=== PATIENT | male | born 1985 | race Caucasian/White ===

== ENCOUNTER → 2018-02-19 | Outpatient (CLI) | payer OTHER ==
[~2018-02-19] MED LIST: GASTROGRAFIN SOLUTION 30ML (Q9963) As Ordered; ISOVUE-370 76% 100ML VIAL (Q9967) As Ordered
[2018-02-19 10:31] LABS: BASO % 0.3 % (0.0-1.0); EOS # 0.3 10^3/uL (0.0-0.50); EOS % 4.6 % (0.0-3.0); HEMOGLOBIN 16.8 g/dl (13.5-17.5); IMMATURE GRANULOCYTE % 0.3 % (0-3.0); LYMPH # 1.2 10^3/uL (1.5-4.5); LYMPH % 16.6 % (24.0-44.0); MEAN CORPUSCULAR HEMOGLOBIN 30.7 pg (27.0-33.0); MEAN CORPUSCULAR VOLUME 87.8 fl (80.0-96.0); MONO # 0.8 10^3/uL (0.0-0.8); MONO % 11.2 % (0.0-5.0); NEUTROPHILS # 4.7 10^3/uL (1.8-7.7); PLATELET COUNT, AUTOMATED 241 10^3/uL (150-450); RED BLOOD COUNT 5.47 10^6/uL (4.30-6.10); RED CELL DISTRIBUTION WIDTH 11.8 % (11.5-14.5)
[2018-02-19 10:56] LABS: ALBUMIN 4.2 GM/DL (3.2-5.2); ALBUMIN/GLOBULIN RATIO 1.31 (1.00-1.93); ALKALINE PHOSPHATASE 63 U/L (45-117); ALT/SGPT 47 U/L (12-78); ANION GAP 8 MEQ/L (8-16); AST/SGOT 25 U/L (7-37); BILIRUBIN,TOTAL 0.8 MG/DL (0.2-1.0); BLOOD UREA NITROGEN 13 MG/DL (7-18); CALCIUM LEVEL 8.8 MG/DL (8.5-10.1); CARBON DIOXIDE LEVEL 28 MEQ/L (21-32); CHLORIDE LEVEL 106 MEQ/L (98-107); CREATININE FOR GFR 0.96 MG/DL (0.70-1.30); GLOMERULAR FILTRATION RATE > 60.0 (>60); GLUCOSE, FASTING 95 MG/DL (70-100); POTASSIUM SERUM 4.3 MEQ/L (3.5-5.1); SODIUM LEVEL 142 MEQ/L (136-145); TOTAL PROTEIN 7.4 GM/DL (6.4-8.2)
== END ==
LOC: M RAD 09:59
DX: R10.31 Right lower quadrant pain (principal)
CPT/HCPCS: Q9963

== ENCOUNTER → 2019-11-21 | Outpatient (REF) | payer BC | LOC: M LAB REF 11:33 | PROVIDERS: ATTEND Physician Assistant | DX: R42 Dizziness and giddiness (principal); E66.09 Other obesity due to excess calories; J45.20 Mild intermittent asthma, uncomplicated; R07.9 Chest pain, unspecified; Z68.31 Body mass index [BMI] 31.0-31.9, adult; Z83.3 Family history of diabetes mellitus ==

== ENCOUNTER → 2021-06-16 | Outpatient (CLI) | payer BC ==
[2021-06-16 16:27] LABS: BASO # 0.1 10^3/uL (0.0-0.2); BASO % 1.2 % (0.0-1.0); EOS # 0.3 10^3/uL (0.0-0.5); EOS % 4.9 % (0.0-3.0); HEMATOCRIT 46.6 % (42.0-52.0); HEMOGLOBIN 15.6 g/dl (13.5-17.5); LYMPH # 2.4 10^3/uL (1.5-5.0); LYMPH % 42.6 % (24.0-44.0); MEAN CORPUSCULAR HEMOGLOBIN 29.9 pg (27.0-33.0); MEAN CORPUSCULAR HGB CONC 33.5 g/dl (32.0-36.5); MEAN CORPUSCULAR VOLUME 89.3 fl (80.0-96.0); MONO # 0.7 10^3/uL (0.0-0.8); MONO % 12.4 % (2.0-8.0); NEUTROPHILS # 2.2 10^3/uL (1.5-8.5); PLATELET COUNT, AUTOMATED 336 10^3/uL (150-450); RED BLOOD COUNT 5.22 10^6/uL (4.30-6.10); WHITE BLOOD COUNT 5.7 10^3/uL (4.0-10.0)
[2021-06-16 16:52] LABS: BLOOD UREA NITROGEN 14 MG/DL (7-18); CALCIUM LEVEL 9.8 MG/DL (8.5-10.1); CARBON DIOXIDE LEVEL 28 MEQ/L (21-32); CHLORIDE LEVEL 101 MEQ/L (98-107); GLOMERULAR FILTRATION RATE > 60.0 (>60); GLUCOSE, FASTING 81 MG/DL (70-100); SODIUM LEVEL 137 MEQ/L (136-145)
== END ==
LOC: M WUC 15:16
PROVIDERS: ATTEND Physician Assistant
DX: M54.2 Cervicalgia (principal); R51.9 Headache, unspecified; R05.1 Acute cough

== ENCOUNTER → 2022-04-22 | Outpatient (CLI) | payer BC ==
[~2022-04-22] MED LIST changes: +ALBU8.5H INH; +ALPR0.25 PO; -GASTROGRAFIN SOLUTION 30ML (Q9963) As Ordered; -ISOVUE-370 76% 100ML VIAL (Q9967) As Ordered; +KEPP1TAB PO; +LEVE500T5 PO; +ONDA-83 PO; +SERT25TA21 PO
== END ==
LOC: M ONCR 09:36
PROVIDERS: ATTEND General Practice
DX: C71.1 Malignant neoplasm of frontal lobe (principal); J45.909 Unspecified asthma, uncomplicated; Z79.899 Other long term (current) drug therapy

== ENCOUNTER 2022-04-24 11:01 | Emergency (ER) | payer BC ==
[~2022-04-24] VITALS: Ht 188 cm; Wt 111.6 kg
[~2022-04-24 11:01] MED LIST changes: -KEPP1TAB PO; -ONDA-83 PO
[2022-04-24] MEDS ORDERED: levETIRAcetam INJection 500 MG in D5W MINI-BAG PLUS 100 ML IV ONE (11:35)
[2022-04-24 12:29] LABS: BASO % 0.6 % (0.0-1.0); EOS # 0.1 10^3/uL (0.0-0.5); EOS % 0.9 % (0.0-3.0); HEMATOCRIT 44.7 % (42.0-52.0); HEMOGLOBIN 15.1 g/dl (13.5-17.5); LYMPH # 1.5 10^3/uL (1.5-5.0); LYMPH % 22.6 % (24.0-44.0); MEAN CORPUSCULAR HEMOGLOBIN 30.4 pg (27.0-33.0); MEAN CORPUSCULAR HGB CONC 33.8 g/dl (32.0-36.5); MEAN CORPUSCULAR VOLUME 89.9 fl (80.0-96.0); MONO # 0.6 10^3/uL (0.0-0.8); MONO % 8.8 % (2.0-8.0); NEUTROPHILS # 4.3 10^3/uL (1.5-8.5); NEUTROPHILS % 66.3 % (36.0-66.0); PLATELET COUNT, AUTOMATED 244 10^3/uL (150-450); RED BLOOD COUNT 4.97 10^6/uL (4.30-6.10); WHITE BLOOD COUNT 6.5 10^3/uL (4.0-10.0)
[2022-04-24] MEDS ORDERED: KEPP1TAB PO (12:37)
[2022-04-24] MEDS ORDERED: levETIRAcetam 250MG TABLET (KEPPRA) PO ONE ×5 (12:40)
[2022-04-24 12:54] LABS: ALBUMIN 4.2 G/DL (3.2-5.2); BILIRUBIN,DIRECT 0.1 MG/DL (<0.4); BILIRUBIN,TOTAL 0.5 MG/DL (0.3-1.2); TOTAL PROTEIN 6.8 G/DL (5.7-8.2)
[2022-04-24 13:17] VITALS: BP 118/68
[2022-04-24] MEDS ORDERED: AZITHROMYCIN 250MG TABLET PO ONE (13:20)
== END 2022-04-24 13:30 | disposition home or self-care (01) ==
LOC: M ED 11:01
DX: R56.9 Unspecified convulsions (principal); C71.9 Malignant neoplasm of brain, unspecified; Z79.51 Long term (current) use of inhaled steroids; Z79.899 Other long term (current) drug therapy
CPT/HCPCS: 70450; 80047; 80076; 85025; 93005; 96374; 99284; J1953

== ENCOUNTER 2022-04-28 14:53 | Outpatient (RCR) | payer BC ==
[~2022-04-28 14:53] MED LIST changes: +KEPP1TAB PO
[2022-05-06] MEDS ORDERED: ONDA-83 PO (09:13)
== END 2022-04-30 ==
LOC: M ONCR 14:53
PROVIDERS: ATTEND General Practice
DX: C71.1 Malignant neoplasm of frontal lobe (principal)

== ENCOUNTER → 2022-05-31 | Outpatient (RCR) | payer BC ==
[~2022-05-31] MED LIST changes: +NIRM1TAB PO; +ONDA-83 PO
== END ==
LOC: M ONCR 05-03 11:14
PROVIDERS: ATTEND General Practice
DX: C71.1 Malignant neoplasm of frontal lobe (principal)

== ENCOUNTER 2022-06-15 08:53 | Outpatient (RCR) | payer BC ==
[~2022-06-15 08:53] MED LIST changes: +SERT-141 PO
== END 2022-06-28 ==
LOC: M ONCR 08:53
PROVIDERS: ATTEND General Practice
DX: C71.1 Malignant neoplasm of frontal lobe (principal)

== ENCOUNTER → 2024-07-16 | Outpatient (CLI) | payer BC ==
[2024-07-16 15:01] LABS: BASO % 0.2 % (0.0-1.0); EOS % 0.1 % (0.0-3.0); HEMATOCRIT 49.5 % (42.0-52.0); HEMOGLOBIN 17.1 g/dl (13.5-17.5); LYMPH # 1.9 10^3/uL (1.5-5.0); LYMPH % 19.7 % (24.0-44.0); MEAN CORPUSCULAR HGB CONC 34.5 g/dl (32.0-36.5); MEAN CORPUSCULAR VOLUME 92.7 fl (80.0-96.0); MONO # 0.8 10^3/uL (0.0-0.8); MONO % 8.2 % (2.0-8.0); NEUTROPHILS # 6.7 10^3/uL (1.5-8.5); NEUTROPHILS % 69.6 % (36.0-66.0); PLATELET COUNT, AUTOMATED 311 10^3/uL (150-450); RED BLOOD COUNT 5.34 10^6/uL (4.30-6.10); WHITE BLOOD COUNT 9.6 10^3/uL (4.0-10.0)
[2024-07-16 15:09] LABS: BLOOD UREA NITROGEN 19 MG/DL (9-23); CALCIUM LEVEL 9.3 MG/DL (8.5-10.1); CARBON DIOXIDE LEVEL 28 MMOL/L (20-31); CHLORIDE LEVEL 103 MMOL/L (98-107); CREATININE FOR GFR 0.82 MG/DL (0.70-1.30); GLOMERULAR FILTRATION RATE > 60.0 (>60); GLUCOSE, FASTING 101 MG/DL (60-100); POTASSIUM SERUM 4.3 MMOL/L (3.5-5.1); SODIUM LEVEL 139 MMOL/L (136-145)
[2024-07-16 15:10] LABS: INR 0.89; PARTIAL THROMBOPLASTIN TIME 27.3 SECONDS (24.8-34.2); PROTHROMBIN TIME 12.4 SECONDS (12.5-14.5)
[2024-07-16 15:31] LABS: APPEARANCE, URINE CLEAR (CLEAR); BACTERIA, URINE AUTO NEGATIVE (NEGATIVE); BILIRUBIN, URINE AUTO NEGATIVE (NEGATIVE); BLOOD, URINE BLOOD NEGATIVE (NEGATIVE); COLOR, URINE YELLOW (YELLOW); GLUCOSE, URINE (UA) AUTO NEGATIVE (NEGATIVE); KETONE, URINE AUTO NEGATIVE (NEGATIVE); LEUKOCYTE ESTERASE, URINE AUTO NEGATIVE (NEGATIVE); NITRITE, URINE AUTO NEGATIVE (NEGATIVE); PROTEIN, URINE AUTO NEGATIVE (NEGATIVE); RBC, URINE AUTO 1 /HPF (0-3); SPECIFIC GRAVITY URINE AUTO 1.028 (1.002-1.035); SQUAMOUS EPITHELIAL CELL UR AU 0 /HPF (0-6); UROBILINOGEN, URINE AUTO 0.2 mg/dL (0.0-2.0); WBC, URINE AUTO 0 /HPF (0-3)
== END ==
LOC: M WUC 11:43
PROVIDERS: ATTEND Family Medicine
DX: Z01.818 Encounter for other preprocedural examination (principal)

== ENCOUNTER 2024-08-05 11:04 | Inpatient (IN) | payer BC ==
[~2024-08-05] VITALS: Ht 188 cm; Wt 105.0 kg
[2024-08-05] MEDS ORDERED: SIMETHICONE 80MG CHEW TAB PO PRN (13:50)
[2024-08-05] MEDS ORDERED: ALBUTEROL 90 MCG/ACT 8GM HFA INHALER INH PRN (13:50)
[2024-08-05] MEDS ORDERED: ALPRAZolam 0.25 MG TAB PO PRN (13:50)
[2024-08-05] MEDS ORDERED: BISACODYL 5MG TAB PO PRN (13:50)
[2024-08-05] MEDS ORDERED: MAALOX 30 ML SUSP *UDC PO PRN (13:50)
[2024-08-05] MEDS ORDERED: ONDANSETRON 4MG ORAL DISINTEGRATING TAB SL PRN (14:10)
[2024-08-05 15:33] VITALS: BP 128/86; TEMP 98.5; O2SAT 67
[2024-08-05] MEDS ORDERED: DEXA2TA PO (17:21)
[2024-08-05] MEDS ORDERED: LEVE750T5 PO (17:21)
[2024-08-05] MEDS ORDERED: PANT-23 PO (17:25)
[2024-08-05] MEDS ORDERED: HOME MED LIST COMPLETE! XX SCH (17:25)
[2024-08-05 20:00] VITALS: BP 124/66; TEMP 98; O2SAT 94
[2024-08-05] MEDS: DOCUSATE SODIUM 100MG CAPSULE PO SCH (20:20)
[2024-08-05] MEDS: dexAMETHasone 2 MG TAB PO SCH (20:20)
[2024-08-05] MEDS: levETIRAcetam 250MG TABLET (KEPPRA) PO SCH (20:21)
[2024-08-05] MEDS: ACETAMINOPHEN 500 MG TAB PO PRN (20:22)
[2024-08-05] MEDS: HEPARIN SOD (PORCINE) 5000UNITS/ML 1ML VIAL/SYRINGE SC SCH (20:22)
[2024-08-05] MEDS: SENNA 8.6 MG TAB (SENOKOT) PO SCH (20:23)
[2024-08-06 04:00] VITALS: BP 101/60; TEMP 96.6; O2SAT 96
[2024-08-06 06:36] LABS: BASO % 0.4 % (0.0-1.0); EOS # 0.1 10^3/uL (0.0-0.5); EOS % 0.7 % (0.0-3.0); HEMATOCRIT 48.8 % (42.0-52.0); HEMOGLOBIN 16.8 g/dl (13.5-17.5); LYMPH # 1.8 10^3/uL (1.5-5.0); LYMPH % 26.9 % (24.0-44.0); MEAN CORPUSCULAR HEMOGLOBIN 31.8 pg (27.0-33.0); MEAN CORPUSCULAR HGB CONC 34.4 g/dl (32.0-36.5); MEAN CORPUSCULAR VOLUME 92.2 fl (80.0-96.0); MONO # 0.5 10^3/uL (0.0-0.8); MONO % 8.1 % (2.0-8.0); NEUTROPHILS % 59.3 % (36.0-66.0); PLATELET COUNT, AUTOMATED 175 10^3/uL (150-450); RED BLOOD COUNT 5.29 10^6/uL (4.30-6.10); WHITE BLOOD COUNT 6.7 10^3/uL (4.0-10.0)
[2024-08-06 07:12] LABS: ALKALINE PHOSPHATASE 44 U/L (40-129); ALT/SGPT 87 U/L (7.0-40); AST/SGOT 23 U/L (<34); BILIRUBIN,TOTAL 0.9 MG/DL (0.3-1.2); BLOOD UREA NITROGEN 29 MG/DL (9-23); CALCIUM LEVEL 9.1 MG/DL (8.5-10.1); CARBON DIOXIDE LEVEL 25 MMOL/L (20-31); CHLORIDE LEVEL 104 MMOL/L (98-107); CREATININE FOR GFR 0.76 MG/DL (0.70-1.30); GLOMERULAR FILTRATION RATE > 60.0 (>60); GLUCOSE, FASTING 110 MG/DL (60-100); POTASSIUM SERUM 4.1 MMOL/L (3.5-5.1); SODIUM LEVEL 140 MMOL/L (136-145); TOTAL PROTEIN 6.4 G/DL (5.7-8.2)
[2024-08-06] MEDS: PANTOPRAZOLE 40MG TAB (PROTONIX) PO SCH (08:05)
[2024-08-06] MEDS: MULTIVITAMINS/MINERALS THERAP 1 TAB PO SCH (08:05)
[2024-08-06] MEDS ORDERED: SERTRALINE HCL 50 MG TAB PO ONE (11:20)
[2024-08-06] MEDS ORDERED: ANALGESIC BALM CRM 3OZ TOP PRN (11:30)
[2024-08-06 12:00] VITALS: BP 133/80; TEMP 97.3; O2SAT 93
[2024-08-06 20:00] VITALS: BP 104/59; TEMP 96.8; O2SAT 99
[2024-08-06] MEDS: SENNA 8.6 MG TAB (SENOKOT) PO SCH (20:22)
[2024-08-06] MEDS: LIDOCAINE 5% (LIDODERM) PATCH TD SCH (20:23)
[2024-08-07 04:00] VITALS: BP 98/63; TEMP 96.5; O2SAT 96
[2024-08-07] MEDS ORDERED: SERTRALINE HCL 50 MG TAB PO SCH (09:00)
[2024-08-07] MEDS: MIRALAX *UNIT DOSE* 17GM PACKET PO SCH (09:21)
[2024-08-07] MEDS ORDERED: MIDODRINE 2.5 MG TAB PO PRN (11:00)
[2024-08-07 12:03] VITALS: BP 111/67; TEMP 98; O2SAT 97
[2024-08-07] MEDS: BISACODYL 5MG TAB PO ONE (13:56)
[2024-08-07] MEDS: BACITRACIN OINTMENT 30GM TUBE TOP SCH (13:56)
[2024-08-07 19:44] VITALS: BP 111/63; TEMP 97.8; O2SAT 98
[2024-08-07] MEDS: levETIRAcetam 250MG TABLET (KEPPRA) PO SCH (20:06)
[2024-08-07] MEDS: MOM 30ML SUSPENSION UDC PO PRN (20:08)
[2024-08-08 03:57] VITALS: BP 138/71; TEMP 97.2; O2SAT 97
[2024-08-08 12:06] VITALS: BP 118/73; TEMP 97.7; O2SAT 97
[2024-08-08] MEDS: SENNA 8.6 MG TAB (SENOKOT) PO ONE (13:28)
[2024-08-08] MEDS: BISACODYL 5MG TAB PO ONE (13:29)
[2024-08-08 20:00] VITALS: BP 110/61; TEMP 97.3; O2SAT 95
[2024-08-09 03:09] VITALS: BP 125/72; TEMP 97.3; O2SAT 94
[2024-08-09] MEDS: SENNA 8.6 MG TAB (SENOKOT) PO SCH (07:16)
[2024-08-09 12:00] VITALS: BP 124/74; TEMP 97.7; O2SAT 96
[2024-08-09 20:00] VITALS: BP 119/69; TEMP 96.9; O2SAT 96
[2024-08-10 04:00] VITALS: BP 93/55; TEMP 96.9; O2SAT 99
[2024-08-10 12:00] VITALS: BP 118/63; TEMP 97.5; O2SAT 97
[2024-08-10 20:00] VITALS: BP 127/67; TEMP 97; O2SAT 97
[2024-08-11 04:00] VITALS: BP 120/64; TEMP 96.8; O2SAT 97
[2024-08-11 11:54] VITALS: BP 125/70; TEMP 97.9; O2SAT 98
[2024-08-11 20:00] VITALS: BP 119/69; TEMP 97.4; O2SAT 97
[2024-08-12 05:00] VITALS: BP 102/62; TEMP 97.3; O2SAT 97
[2024-08-12 12:09] VITALS: BP 112/66; TEMP 97.7; O2SAT 96
[2024-08-12 20:00] VITALS: BP 122/55; TEMP 97; O2SAT 96
[2024-08-13 04:00] VITALS: BP 108/65; TEMP 97.2; O2SAT 97
[2024-08-13 11:40] VITALS: BP 116/74; TEMP 97.1; O2SAT 96
[2024-08-13 20:00] VITALS: BP 96/53; TEMP 97.7; O2SAT 98
[2024-08-14 04:00] VITALS: BP 104/56; TEMP 97.3; O2SAT 100
[2024-08-14 12:09] VITALS: BP 111/77; TEMP 97.2; O2SAT 98
[2024-08-14 12:54] LABS: BASO # 0.1 10^3/uL (0.0-0.2); BASO % 0.9 % (0.0-1.0); EOS % 0.4 % (0.0-3.0); HEMATOCRIT 45.6 % (42.0-52.0); HEMOGLOBIN 15.3 g/dl (13.5-17.5); LYMPH # 1.5 10^3/uL (1.5-5.0); LYMPH % 26.1 % (24.0-44.0); MEAN CORPUSCULAR HEMOGLOBIN 31.9 pg (27.0-33.0); MEAN CORPUSCULAR HGB CONC 33.6 g/dl (32.0-36.5); MEAN CORPUSCULAR VOLUME 95.2 fl (80.0-96.0); MONO # 0.6 10^3/uL (0.0-0.8); MONO % 10.5 % (2.0-8.0); NEUTROPHILS # 3.1 10^3/uL (1.5-8.5); PLATELET COUNT, AUTOMATED 155 10^3/uL (150-450); RED BLOOD COUNT 4.79 10^6/uL (4.30-6.10); WHITE BLOOD COUNT 5.6 10^3/uL (4.0-10.0)
[2024-08-14 13:02] LABS: BLOOD UREA NITROGEN 17 MG/DL (9-23); CALCIUM LEVEL 9.4 MG/DL (8.5-10.1); CARBON DIOXIDE LEVEL 30 MMOL/L (20-31); CHLORIDE LEVEL 103 MMOL/L (98-107); CREATININE FOR GFR 0.64 MG/DL (0.70-1.30); GLOMERULAR FILTRATION RATE > 90.0 (>60); GLUCOSE, FASTING 87 MG/DL (60-100); POTASSIUM SERUM 4.1 MMOL/L (3.5-5.1); SODIUM LEVEL 141 MMOL/L (136-145)
[2024-08-14 20:00] VITALS: BP 102/65; TEMP 97.7; O2SAT 99
[2024-08-15 04:00] VITALS: BP 130/74; TEMP 97.5; O2SAT 99
[2024-08-15] MEDS: ASPIRIN 81MG ENTERIC TABLET PO SCH (08:00)
[2024-08-15 12:00] VITALS: BP 115/68; TEMP 97.8; O2SAT 97
[2024-08-15 20:00] VITALS: BP 101/55; TEMP 97.1; O2SAT 96
[2024-08-16 06:37] VITALS: BP 98/59; TEMP 97.1; O2SAT 98
[2024-08-16 16:00] VITALS: BP 117/69; TEMP 97.6; O2SAT 95
[2024-08-16 20:00] VITALS: BP 109/57; TEMP 96.9; O2SAT 99
[2024-08-17 04:00] VITALS: BP 112/78; TEMP 97.8; O2SAT 98
[2024-08-17 11:40] VITALS: BP 110/67; TEMP 96.5; O2SAT 98
[2024-08-17 19:24] VITALS: BP_SYST 111; BP_SYST 126; BP_DIAS 57; BP_DIAS 59; TEMP 96.7; O2SAT 95
[2024-08-18 04:23] VITALS: BP 103/59; TEMP 97; O2SAT 96
[2024-08-18] MEDS: BISACODYL 5MG TAB PO PRN (06:33)
[2024-08-18 11:58] VITALS: BP 108/68; TEMP 97.3; O2SAT 97
[2024-08-18 20:00] VITALS: BP 119/69; TEMP 98.1; O2SAT 93
[2024-08-19 04:00] VITALS: BP 126/71; TEMP 97; O2SAT 95
[2024-08-19 12:27] VITALS: BP 99/58; TEMP 97.2; O2SAT 97
[2024-08-19] MEDS ORDERED: COLA100C5 PO (15:33)
[2024-08-19] MEDS ORDERED: METH85CR11 TOP (15:33)
[2024-08-19] MEDS ORDERED: LEVE750T5 PO (15:33)
[2024-08-19] MEDS ORDERED: LIDO5TD TD (15:33)
[2024-08-19] MEDS ORDERED: BISAC5TA PO (15:33)
[2024-08-19] MEDS ORDERED: PANT-23 PO (15:33)
[2024-08-19] MEDS ORDERED: THERTAB19 PO (15:33)
[2024-08-19] MEDS ORDERED: ASPI81TAEC PO (15:33)
[2024-08-19] MEDS ORDERED: ACET-683 PO (15:33)
[2024-08-19] MEDS ORDERED: DEXA2TA PO (15:33)
[2024-08-19] MEDS ORDERED: SENO8.6T5 PO (15:33)
[2024-08-19 19:15] VITALS: BP 116/59; TEMP 97.2; O2SAT 94
[2024-08-20 04:00] VITALS: BP 115/68; TEMP 96.2; O2SAT 96
== END 2024-08-20 12:25 | disposition home health service (06) | DRG 41 ==
LOC: M PM&R 15:00
PROVIDERS: ADMIT Physical Medicine & Rehabilitation; ATTEND Physical Medicine & Rehabilitation
DX: C71.1 Malignant neoplasm of frontal lobe (principal); G81.94 Hemiplegia, unspecified affecting left nondominant side; K25.9 Gastric ulcer, unspecified as acute or chronic, without hemorrhage or perforation; R13.11 Dysphagia, oral phase; J45.909 Unspecified asthma, uncomplicated; G40.909 Epilepsy, unspecified, not intractable, without status epilepticus; R53.1 Weakness; R26.89 Other abnormalities of gait and mobility; F41.9 Anxiety disorder, unspecified; F32.A Depression, unspecified; Z79.899 Other long term (current) drug therapy; K59.00 Constipation, unspecified

== ENCOUNTER → 2024-09-12 | Outpatient (CLI) | payer BC ==
[~2024-09-12] MED LIST changes: +ACET-683 PO; +ASPI81TAEC PO; +BISAC5TA PO; +COLA100C5 PO; +DEXA2TA PO; +LEVE750T5 PO; +LIDO5TD TD; +METH85CR11 TOP; +PANT-23 PO; +PROHANCE 279.3MG/ML 15ML VIAL ONE; +PROHANCE 279.3MG/ML 5ML VIAL ONE; +SENO8.6T5 PO; +THERTAB19 PO
== END ==
LOC: M PLAIMG 07:19
PROVIDERS: ATTEND Neurological Surgery
DX: C71.1 Malignant neoplasm of frontal lobe (principal)

== ENCOUNTER → 2024-11-29 | Outpatient (CLI) | payer BC ==
[~2024-11-29] MED LIST changes: -PROHANCE 279.3MG/ML 15ML VIAL ONE; -PROHANCE 279.3MG/ML 5ML VIAL ONE; +SENN-225 PO; -SENO8.6T5 PO; +TEMO100C17
== END ==
LOC: M PLARAD 09:27
PROVIDERS: ATTEND Neurological Surgery
DX: C71.1 Malignant neoplasm of frontal lobe (principal); G93.6 Cerebral edema

== ENCOUNTER 2024-11-30 13:38 | Emergency (ER) | payer BC ==
[~2024-11-30] VITALS: Ht 185.4 cm; Wt 104.5 kg
[~2024-11-30 13:38] MED LIST changes: -TEMO100C17
[2024-11-30] MEDS ORDERED: TEMO100C17 (13:55)
[2024-11-30 16:09] VITALS: BP 136/85; TEMP 97.7; O2SAT 98
== END 2024-11-30 16:19 | disposition home or self-care (01) ==
LOC: M ED 13:38
DX: M25.512 Pain in left shoulder (principal); C71.4 Malignant neoplasm of occipital lobe; R56.9 Unspecified convulsions; J45.909 Unspecified asthma, uncomplicated; R53.1 Weakness; F41.9 Anxiety disorder, unspecified; F32.A Depression, unspecified; J30.81 Allergic rhinitis due to animal (cat) (dog) hair and dander; J30.89 Other allergic rhinitis; Z87.19 Personal history of other diseases of the digestive system; Z79.630 Long term (current) use of alkylating agent

== ENCOUNTER → 2024-12-09 | Outpatient (CLI) | payer BC ==
[~2024-12-09] VITALS: Ht 185.4 cm; Wt 104.5 kg
[~2024-12-09] MED LIST changes: +DEXA4TA PO; +DULO30CA9 PO; +MIRA3350 PO; +OXYC-517 PO; +TEMO100C17
[2024-12-09 14:59] VITALS: BP 147/96; O2SAT 99
== END ==
LOC: M PAL 14:43
PROVIDERS: ATTEND Physician Assistant
DX: Z51.5 Encounter for palliative care (principal); Z66 Do not resuscitate; C71.0 Malignant neoplasm of cerebrum, except lobes and ventricles; I69.354 Hemiplegia and hemiparesis following cerebral infarction affecting left non-dominant side; Z79.891 Long term (current) use of opiate analgesic; Z91.048 Other nonmedicinal substance allergy status; Z79.899 Other long term (current) drug therapy

== ENCOUNTER → 2024-12-23 | Outpatient (CLI) | payer BC ==
[~2024-12-23] VITALS: Ht 185.4 cm; Wt 101.8 kg
[~2024-12-23] MED LIST changes: +DEXA2TA; +DULO1CAP6 PO; +OLAN1TAB16 PO; +SENN-186
[2024-12-23 15:33] VITALS: BP 137/92; O2SAT 98
== END ==
LOC: M PAL 13:43
PROVIDERS: ATTEND Physician Assistant
DX: Z51.5 Encounter for palliative care (principal); Z66 Do not resuscitate; C71.1 Malignant neoplasm of frontal lobe; Z90.2 Acquired absence of lung [part of]; G81.94 Hemiplegia, unspecified affecting left nondominant side; Z79.891 Long term (current) use of opiate analgesic; Z79.899 Other long term (current) drug therapy; Z91.048 Other nonmedicinal substance allergy status

== ENCOUNTER → 2024-12-25 | Outpatient (CLI) | payer BC ==
[~2024-12-25] MED LIST changes: +PROHANCE 279.3MG/ML 15ML VIAL ONE; +PROHANCE 279.3MG/ML 5ML VIAL ONE
== END ==
LOC: M PLAIMG 12:30
PROVIDERS: ATTEND Internal Medicine Hematology & Oncology
DX: C71.1 Malignant neoplasm of frontal lobe (principal)
CPT/HCPCS: 70553; A9576

== ENCOUNTER → 2024-12-31 | Outpatient (CLI) | payer BC ==
[~2024-12-31] MED LIST changes: -PROHANCE 279.3MG/ML 15ML VIAL ONE; -PROHANCE 279.3MG/ML 5ML VIAL ONE
== END ==
LOC: M ONCM 11:28
DX: C71.9 Malignant neoplasm of brain, unspecified (principal)

== ENCOUNTER 2025-02-03 17:07 | Observation (INO) | payer BC ==
[~2025-02-03] VITALS: Ht 188 cm; Wt 104.0 kg
[2025-02-04] MEDS ORDERED: BISACODYL 10 MG SUPP PR PRN (01:15)
[2025-02-04] MEDS ORDERED: MORPHINE 4 MG/ML 1 ML VIAL IV PRN (01:15)
[2025-02-04] MEDS ORDERED: ACETAMINOPHEN 650 MG SUPP PR PRN (01:15)
[2025-02-04] MEDS ORDERED: HYOSCYAMINE SULFATE 0.125 MG SUBL TABLET PO PRN (01:15)
[2025-02-04] MEDS ORDERED: ONDANSETRON 4MG 2ML VIAL IV PRN (01:15)
[2025-02-04] MEDS ORDERED: FLEET ENEMA PR PRN (01:15)
[2025-02-04] MEDS ORDERED: MORPHINE SULF IN 0.9% NACL 100 MG in IV 1 EA IV SCH (01:15)
[2025-02-04] MEDS ORDERED: SCOPOLAMINE 1MG TRANSDERMAL PATCH TOP PRN (01:15)
[2025-02-04] MEDS ORDERED: ATROPINE SULFATE 1% OPHTH SOLN 2 ML BTL SL PRN (01:15)
[2025-02-04] MEDS ORDERED: levETIRAcetam INJection 1,500 MG in IV 1 EA IV SCH (02:20)
[2025-02-04] MEDS: MORPHINE SULF IN 0.9% NACL 100 MG in IV 1 EA IV SCH (03:13)
[2025-02-04] MEDS ORDERED: levETIRAcetam INJection 750 MG in D5W 100 ML IV SCH (09:00)
== END 2025-02-04 05:10 | disposition expired ==
LOC: M MS5PR 02-04 00:40 → INTOOBSV 02-04 00:40
PROVIDERS: ADMIT Student in an Organized Health Care Education/Training Program; ATTEND Student in an Organized Health Care Education/Training Program
DX: Z51.5 Encounter for palliative care (principal); R40.20 Unspecified coma; C71.9 Malignant neoplasm of brain, unspecified; J45.909 Unspecified asthma, uncomplicated; G40.909 Epilepsy, unspecified, not intractable, without status epilepticus; S06.A1XA Traumatic brain compression with herniation, initial encounter; G93.41 Metabolic encephalopathy; Z79.899 Other long term (current) drug therapy